=== PATIENT | male | born 1955 | race African-American/Black ===

== ENCOUNTER 2020-09-07 11:18 | Inpatient (IN) | payer OTHER ==
--- NOTE | 2020-09-07 12:44 | BHS.RME ---
2019 N Coronavirus Screen - COVID-19 Screening Questions Dx of COVID-19 or had a positive test in the last 4 weeks?: No Contact with known/suspected COVID patient in last 14 days?: No Any of these symptoms or contact with someone who has?: None Traveled domestically/internationally in the last 14 days?: No Screen score: 0 Screen result: Further Evaluation Substance Use & Tx History - Substance Use History Alcohol Substance amount: 1.5 pints vodka Frequency of use: Daily Substance route: Oral Date of Last Use: 09/06/20 (started age 20) Cocaine- Powder Substance amount: 1 gram Frequency of use: Daily Substance route: Inhalation (ex: sniffing or snorting) Date of Last Use: 09/06/20 (started age 24) Physical/Psych/Mental Status - Behavior General Behavior: Increased activity (restlessness, agitation) Eye Contact: Normal - Cooperativeness Cooperativeness: Cooperative - Thinking Thought Processes: Tight, Logical, Goal Directed Thought content: Future oriented - Physical Health Problems Is patient presently having any pain?: No Does patient presently have any injuries (include location): No Does patient currently have a fever: No Is patient : No CIWA Nausea/Vomitin Muscle Tremors: 3 Anxiety: 3 Agitation: 3 Paroxysmal Sweats: 2 Orientation: 0-Oriented Tacttile Disturbances: 1-Very Mild Itch/Numbness Auditory Disturbances: 0-None Visual Disturbances: 0-None Headache: 0-None Present CIWA-Ar Total Score: 14
[2020-09-07 12:57] VITALS: BMI 26.4
--- OUTSIDE RECORDS SUMMARY | 2020-09-07 13:20 | XMS ---
:1955 Author Organization [facility] Support Name Relationship Address Phone RE Unavailable Unavailable Unavailable MARVIN [place]A [place], [place] Re-disclosure Warning The records that you are about to access may contain information from federally- assisted alcohol or drug abuse programs. If such information is present, then the following federally mandated warning applies: This information has been disclosed to you from records protected by federal confidentiality rules (42 CFR part 2). The federal rules prohibit you from making any further disclosure of this information unless further disclosure is expressly permitted by the written consent of the person to whom it pertains or as otherwise permitted by 42 CFR part 2. A general authorization for the release of medical or other information is NOT sufficient for this purpose. The Federal rules restrict any use of the information to criminally investigate or prosecute any alcohol or drug abuse patient.The records that you are about to access may contain highly sensitive health information, the redisclosure of which is protected by Article 27-F of the [facility] Public Health law. If you continue you may haveaccess to information: Regarding HIV / AIDS; Provided by facilities licensed or operated by the [facility] Office of Mental Health; or Provided by the [facility] Office for People With Developmental Disabilities. If such information is present, then the following [facility] mandated warning applies: This information has been disclosed to you from confidential records which are protected by state law. State law prohibits you from making any further disclosure of this information without the specific written consent of the person to whom it pertains, or as otherwise permitted by law. Any unauthorized further disclosure in violation of state law may result in a fine or care home sentence or both. A general authorization for the release of medical or other information is NOT sufficient authorization for further disclosure. Insurance Providers Payer name Policy type Policy ID Covered Covered libertarian's Policy P la / Coverage libertarian ID relationship to Spar[employer] Inf ormation type sparrow BEACON [id number] SP [id number] [facility]
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
[2020-09-07] MEDS ORDERED: MENTHOL/PHENOL 1 EACH UD MM PRN (13:40)
[2020-09-07] MEDS ORDERED: IBUPROFEN 400 MG TABLET (FP) PO PRN (13:40)
[2020-09-07] MEDS ORDERED: ONDANSETRON *ODT* 4 MG TABLET SL PRN (13:40)
[2020-09-07] MEDS ORDERED: ACETAMINOPHEN 325 MG TABLET (FP) PO PRN ×2 (13:40)
[2020-09-07] MEDS ORDERED: chlordiazePOXIDE HCL 25 MG CAPSULE PO PRN (13:40)
[2020-09-07] MEDS ORDERED: METHOCARBAMOL 500 MG TABLET PO PRN (13:40)
[2020-09-07] MEDS ORDERED: MAG HYDROX/AL HYDROX/SIMETH 30 ML UNIT-DOSE CUP PO PRN (13:40)
[2020-09-07] MEDS ORDERED: NICOTINE POLACRILEX 2 MG GUM BUC PRN (13:40)
[2020-09-07] MEDS ORDERED: MAGNESIUM HYDROX 2400MG/30ML ORAL SUSPENSION 30 ML CUP PO PRN (13:40)
[2020-09-07] MEDS ORDERED: MAGNESIUM CITRATE 300 ML BOTTLE PO PRN (13:40)
[2020-09-07] MEDS ORDERED: BISMUTH SUBSALICYLATE 524 MG/30 ML UD PO PRN (13:40)
[2020-09-07] MEDS: hydrOXYzine PAMOATE 25 MG CAPSULE (FP) PO SCH ×3 (14:39→22:45)
--- NOTE | 2020-09-07 14:53 | EKG ---
Test Reason : Blood Pressure : / mmHG Vent. Rate : 088 BPM Atrial Rate : 088 BPM P-R Int : 150 ms QRS Dur : 102 ms QT Int : 360 ms P-R-T Axes : 058 030 047 degrees QTc Int : 435 ms NORMAL SINUS RHYTHM POSSIBLE LEFT ATRIAL ENLARGEMENT LEFT VENTRICULAR HYPERTROPHY ABNORMAL ECG NO PREVIOUS ECGS AVAILABLE Confirmed by KEENAN VOGEL, AMISHA ([id number]) on 09/07/2020 2:52:55 PM Referred By: Confirmed By:AMISHA HUSSEIN MD
[2020-09-07 14:56] LABS: HEMATOCRIT 35.8 % (35.4-49); HEMOGLOBIN 11.6 GM/dL (11.7-16.9); MCH 29.7 pg (25.7-33.7); MCHC 32.4 g/dl (32.0-35.9); MEAN CELL VOLUME 91.5 fl (80-96); MEAN PLT VOLUME 7.9 fl (7.5-11.1); PLATELET COUNT 385 K/MM3 (134-434); RBC 3.91 M/mm3 (4.00-5.60); RDW 13.6 % (11.9-15.9); WHITE BLOOD COUNT 6.2 K/mm3 (4.0-10.0)
[2020-09-07 15:12] LABS: ALBUMIN 3.5 g/dl (3.4-5.0); BILIRUBIN,TOTAL 0.8 mg/dL (0.2-1); BLOOD UREA NITROGEN 15.8 mg/dL (7-18); CALCIUM 9.2 mg/dL (8.5-10.1); POTASSIUM 3.7 mmol/L (3.5-5.1); TOT PROT 7.1 g/dl (6.4-8.2)
[2020-09-07] MEDS: chlordiazePOXIDE HCL 25 MG CAPSULE PO SCH ×2 (18:37→22:45)
[2020-09-07] MEDS: THIAMINE HCL 100 MG TABLET (FP) PO SCH (22:45)
[2020-09-07] MEDS: ATORVASTATIN CA 10 MG TABLET (FP) PO SCH (22:45)
[2020-09-07] MEDS: MELATONIN 5 MG TABLETS PO SCH (22:48)
[2020-09-08] MEDS: hydrOXYzine PAMOATE 25 MG CAPSULE (FP) PO SCH ×5 (05:34→22:19)
[2020-09-08] MEDS: chlordiazePOXIDE HCL 25 MG CAPSULE PO SCH ×4 (05:34→22:19)
--- NOTE | 2020-09-08 10:07 | PN ---
[facility] CIWA - CIWA Score Nausea/Vomitin-Mild Nausea/No Vomiting Muscle Tremors: 3 Anxiety: 3 Agitation: 2 Paroxysmal Sweats: No Perspiration Orientation: 0-Oriented Tacttile Disturbances: 1-Very Mild Itch/Numbness Auditory Disturbances: 0-None Visual Disturbances: 0-None Headache: 2-Mild CIWA-Ar Total Score: 12 S Progress Note (SOAP) Subjective: alert,irritable,anxious,interrupted sleep,tremor,aching pain Objective: 09/08/20 10:05 Vital Signs Temperature 96.8 F L 09/08/20 09:32 Pulse Rate 69 09/08/20 09:32 Respiratory Rate 16 09/08/20 09:32 Blood Pressure 112/59 L 09/08/20 09:32 O2 Sat by Pulse Oximetry (%) 97 09/08/20 09:32 Laboratory Last Values WBC 6.2 K/mm3 (4.0-10.0) 09/07/20 13:30 RBC 3.91 M/mm3 (4.00-5.60) L 09/07/20 13:30 Hgb 11.6 GM/dL (11.7-16.9) L 09/07/20 13:30 Hct 35.8 % (35.4-49) 09/07/20 13:30 MCV 91.5 fl (80-96) 09/07/20 13:30 MCH 29.7 pg (25.7-33.7) 09/07/20 13:30 MCHC 32.4 g/dl (32.0-35.9) 09/07/20 13:30 RDW 13.6 % (11.9-15.9) 09/07/20 13:30 Plt Count 385 K/MM3 (134-434) 09/07/20 13:30 MPV 7.9 fl (7.5-11.1) 09/07/20 13:30 Sodium 141 mmol/L (136-145) 09/07/20 13:30 Potassium 3.7 mmol/L (3.5-5.1) 09/07/20 13:30 Chloride 106 mmol/L (98-107) 09/07/20 13:30 Carbon Dioxide 30 mmol/L (21-32) 09/07/20 13:30 Anion Gap 6 MMOL/L (8-16) L 09/07/20 13:30 BUN 15.8 mg/dL (7-18) 09/07/20 13:30 Creatinine 1.0 mg/dL (0.55-1.3) 09/07/20 13:30 Est GFR (CKD-EPI)AfAm 92.42 09/07/20 13:30 Est GFR (CKD-EPI)NonAf 79.75 09/07/20 13:30 Random Glucose 158 mg/dL (74-106) H 09/07/20 13:30 Calcium 9.2 mg/dL (8.5-10.1) 09/07/20 13:30 Total Bilirubin 0.8 mg/dL (0.2-1) 09/07/20 13:30 AST 15 U/L (15-37) 09/07/20 13:30 ALT 18 U/L (13-61) 09/07/20 13:30 Alkaline Phosphatase 43 U/L (45-117) L 09/07/20 13:30 Total Protein 7.1 g/dl (6.4-8.2) 09/07/20 13:30 Albumin 3.5 g/dl (3.4-5.0) 09/07/20 13:30 Syphilis Serology Non-reactive (NONREACTIVE) 09/07/20 13:30 HIV Ag/Ab Combo Qual Negative (NEGATIVE) 09/07/20 13:30 Assessment: 09/08/20 10:06 withdrawal symptom Plan: continue detox librium regimen,fasting glucose in am
[2020-09-08] MEDS: NICOTINE 7 MG/24 HOURS TOPICAL PATCH TD SCH (10:37)
[2020-09-08] MEDS: HYDROCHLOROTHIAZIDE 12.5 MG CAPSULE (FP) PO SCH (10:37)
[2020-09-08] MEDS: KETOCONAZOLE 2% TOPICAL CREAM 15 GM TUBE TP SCH (10:37)
[2020-09-08] MEDS: PRENATAL VITAMINS W/ FOLIC ACID TABLET (FP) PO SCH (10:38)
[2020-09-08] MEDS: THIAMINE HCL 100 MG TABLET (FP) PO SCH (22:19)
[2020-09-08] MEDS: MELATONIN 5 MG TABLETS PO SCH (22:19)
[2020-09-08] MEDS: ATORVASTATIN CA 10 MG TABLET (FP) PO SCH (22:19)
[2020-09-09] MEDS: hydrOXYzine PAMOATE 25 MG CAPSULE (FP) PO SCH ×5 (05:38→22:45)
[2020-09-09] MEDS: chlordiazePOXIDE HCL 25 MG CAPSULE PO SCH ×4 (05:38→22:46)
[2020-09-09] MEDS: PRENATAL VITAMINS W/ FOLIC ACID TABLET (FP) PO SCH (10:29)
[2020-09-09] MEDS: NICOTINE 7 MG/24 HOURS TOPICAL PATCH TD SCH (10:31)
[2020-09-09] MEDS: HYDROCHLOROTHIAZIDE 12.5 MG CAPSULE (FP) PO SCH (15:29)
[2020-09-09] MEDS: KETOCONAZOLE 2% TOPICAL CREAM 15 GM TUBE TP SCH (15:29)
--- NOTE | 2020-09-09 18:23 | PN ---
S CIWA - CIWA Score Nausea/Vomitin Muscle Tremors: 2 Anxiety: 3 Agitation: 2 Paroxysmal Sweats: No Perspiration Orientation: 0-Oriented Tacttile Disturbances: 0-None Auditory Disturbances: 0-None Visual Disturbances: 0-None Headache: 0-None Present CIWA-Ar Total Score: 12 BHS Progress Note (SOAP) Subjective: Anxious, Tremors, Vomiting. Objective: Patient A & O X 3, Observed Ambulating on Detox Unit with Assistance of a Cane. In No Acute Distress. 09/09/20 18:19 Vital Signs Temperature 97.7 F 09/09/20 16:30 Pulse Rate 80 09/09/20 16:30 Respiratory Rate 19 09/09/20 16:30 Blood Pressure 124/73 09/09/20 16:30 O2 Sat by Pulse Oximetry (%) 98 09/09/20 16:30 Laboratory Tests 09/07/20 09/07/20 09/07/20 13:30 13:30 13:30 WBC 6.2 RBC 3.91 L Hgb 11.6 L Hct 35.8 MCV 91.5 MCH 29.7 MCHC 32.4 RDW 13.6 Plt Count 385 MPV 7.9 Sodium 141 Potassium 3.7 Chloride 106 Carbon Dioxide 30 Anion Gap 6 L BUN 15.8 Creatinine 1.0 Est GFR (CKD-EPI)AfAm 92.42 Est GFR (CKD-EPI)NonAf 79.75 Random Glucose 158 H Fasting Glucose Calcium 9.2 Total Bilirubin 0.8 AST 15 ALT 18 Alkaline Phosphatase 43 L Total Protein 7.1 Albumin 3.5 Syphilis Serology COVID-19 (AISLINN) HIV Ag/Ab Combo Qual Negative 09/07/20 09/07/20 09/09/20 13:30 13:30 07:05 WBC RBC Hgb Hct MCV MCH MCHC RDW Plt Count MPV Sodium Potassium Chloride Carbon Dioxide Anion Gap BUN Creatinine Est GFR (CKD-EPI)AfAm Est GFR (CKD-EPI)NonAf Random Glucose Fasting Glucose 102 Calcium Total Bilirubin AST ALT Alkaline Phosphatase Total Protein Albumin Syphilis Serology Non-reactive COVID-19 (AISLINN) Not detected HIV Ag/Ab Combo Qual Lab results noted. Result of Fasting Glucose level noted (102) within normal range. 09/09/20 18:20 Assessment: 09/09/20 18:19 WITHDRAWAL SYMPTOMS. ANEMIA. 09/09/20 18:21 Plan: Continue Detox. Increase Daily oral water intake. PRN Zofran SL recommended for relief of Nausea / Vomiting. Patient is currently receiving daily MVI containing B Vitamins and Iron while admitted for Detox.
[2020-09-09] MEDS: ATORVASTATIN CA 10 MG TABLET (FP) PO SCH (22:45)
[2020-09-09] MEDS: THIAMINE HCL 100 MG TABLET (FP) PO SCH (22:45)
[2020-09-09] MEDS: MELATONIN 5 MG TABLETS PO SCH (22:46)
[2020-09-10] MEDS ORDERED: chlordiazePOXIDE HCL 10 MG CAPSULE PO PRN
[2020-09-10] MEDS: hydrOXYzine PAMOATE 25 MG CAPSULE (FP) PO SCH ×5 (05:28→22:31)
[2020-09-10] MEDS: chlordiazePOXIDE HCL 10 MG CAPSULE PO SCH ×4 (05:28→22:32)
[2020-09-10] MEDS: HYDROCHLOROTHIAZIDE 12.5 MG CAPSULE (FP) PO SCH (10:13)
[2020-09-10] MEDS: PRENATAL VITAMINS W/ FOLIC ACID TABLET (FP) PO SCH (10:14)
[2020-09-10] MEDS: NICOTINE 7 MG/24 HOURS TOPICAL PATCH TD SCH (10:16)
[2020-09-10] MEDS: KETOCONAZOLE 2% TOPICAL CREAM 15 GM TUBE TP SCH (11:03)
--- NOTE | 2020-09-10 12:02 | PN ---
[facility] CIWA - CIWA Score Nausea/Vomitin-No Nausea/No Vomiting Muscle Tremors: 2 Anxiety: 2 Agitation: 2 Paroxysmal Sweats: 2 Orientation: 0-Oriented Tacttile Disturbances: 0-None Auditory Disturbances: 0-None Visual Disturbances: 0-None Headache: 0-None Present CIWA-Ar Total Score: 8 S Progress Note (SOAP) Subjective: Complaints of anxiety, tremors, and sweats. Objective: 09/10/20 12:01 Vital Signs 09/10/20 09/10/20 06:18 09:15 Temperature 98.0 F 97.9 F Pulse Rate 63 74 Respiratory 20 19 Rate Blood Pressure 126/65 111/66 O2 Sat by Pulse 100 100 Oximetry (%) Laboratory Last Values WBC 6.2 K/mm3 (4.0-10.0) 09/07/20 13:30 RBC 3.91 M/mm3 (4.00-5.60) L 09/07/20 13:30 Hgb 11.6 GM/dL (11.7-16.9) L 09/07/20 13:30 Hct 35.8 % (35.4-49) 09/07/20 13:30 MCV 91.5 fl (80-96) 09/07/20 13:30 MCH 29.7 pg (25.7-33.7) 09/07/20 13:30 MCHC 32.4 g/dl (32.0-35.9) 09/07/20 13:30 RDW 13.6 % (11.9-15.9) 09/07/20 13:30 Plt Count 385 K/MM3 (134-434) 09/07/20 13:30 MPV 7.9 fl (7.5-11.1) 09/07/20 13:30 Sodium 141 mmol/L (136-145) 09/07/20 13:30 Potassium 3.7 mmol/L (3.5-5.1) 09/07/20 13:30 Chloride 106 mmol/L (98-107) 09/07/20 13:30 Carbon Dioxide 30 mmol/L (21-32) 09/07/20 13:30 Anion Gap 6 MMOL/L (8-16) L 09/07/20 13:30 BUN 15.8 mg/dL (7-18) 09/07/20 13:30 Creatinine 1.0 mg/dL (0.55-1.3) 09/07/20 13:30 Est GFR (CKD-EPI)AfAm 92.42 09/07/20 13:30 Est GFR (CKD-EPI)NonAf 79.75 09/07/20 13:30 Random Glucose 158 mg/dL (74-106) H 09/07/20 13:30 Fasting Glucose 102 mg/dL (74-106) 09/09/20 07:05 Calcium 9.2 mg/dL (8.5-10.1) 09/07/20 13:30 Total Bilirubin 0.8 mg/dL (0.2-1) 09/07/20 13:30 AST 15 U/L (15-37) 09/07/20 13:30 ALT 18 U/L (13-61) 09/07/20 13:30 Alkaline Phosphatase 43 U/L (45-117) L 09/07/20 13:30 Total Protein 7.1 g/dl (6.4-8.2) 09/07/20 13:30 Albumin 3.5 g/dl (3.4-5.0) 09/07/20 13:30 Syphilis Serology Non-reactive (NONREACTIVE) 09/07/20 13:30 COVID-19 (AISLINN) Not detected (Not Detected) 09/07/20 13:30 HIV Ag/Ab Combo Qual Negative (NEGATIVE) 09/07/20 13:30 labs noted. Assessment: 09/10/20 12:01 Alert and oriented x3, in no acute respiratory distress. Full ROM, ambulating in unit with cane. Skin warm to touch without lesions. Withdrawal symptoms. 09/10/20 12:02 Plan: Continue detox protocol.
[2020-09-10] MEDS: ATORVASTATIN CA 10 MG TABLET (FP) PO SCH (22:31)
[2020-09-10] MEDS: THIAMINE HCL 100 MG TABLET (FP) PO SCH (22:31)
[2020-09-10] MEDS: MELATONIN 5 MG TABLETS PO SCH (22:32)
[2020-09-11] MEDS: chlordiazePOXIDE HCL 10 MG CAPSULE PO SCH ×2 (05:41→17:48)
[2020-09-11] MEDS: hydrOXYzine PAMOATE 25 MG CAPSULE (FP) PO SCH ×5 (05:41→22:12)
--- NOTE | 2020-09-11 10:21 | PN ---
[facility] CIWA - CIWA Score Nausea/Vomitin-No Nausea/No Vomiting Muscle Tremors: 1-None Visible, but [place] Anxiety: 1-Mildly Anxious Agitation: 0-Normal Activity Paroxysmal Sweats: No Perspiration Orientation: 0-Oriented Tacttile Disturbances: 0-None Auditory Disturbances: 0-None Visual Disturbances: 0-None Headache: 0-None Present CIWA-Ar Total Score: 2 BHS Progress Note (SOAP) Subjective: anxiety Objective: 09/11/20 11:11 Vital Signs Temperature 96.9 F L 09/11/20 08:47 Pulse Rate 81 09/11/20 08:47 Respiratory Rate 18 09/11/20 08:47 Blood Pressure 119/68 09/11/20 08:47 O2 Sat by Pulse Oximetry (%) 99 09/11/20 08:47 aaox3 sitting on edge of bed reading a book no acute distress Assessment: 09/11/20 11:11 mild withdrawals Plan: d/c in am
[2020-09-11] MEDS: PRENATAL VITAMINS W/ FOLIC ACID TABLET (FP) PO SCH (10:26)
[2020-09-11] MEDS: NICOTINE 7 MG/24 HOURS TOPICAL PATCH TD SCH (10:26)
[2020-09-11] MEDS: HYDROCHLOROTHIAZIDE 12.5 MG CAPSULE (FP) PO SCH (10:26)
[2020-09-11] MEDS: KETOCONAZOLE 2% TOPICAL CREAM 15 GM TUBE TP SCH (12:32)
[2020-09-11] MEDS: ATORVASTATIN CA 10 MG TABLET (FP) PO SCH (22:10)
[2020-09-11] MEDS: THIAMINE HCL 100 MG TABLET (FP) PO SCH (22:10)
[2020-09-11] MEDS: MELATONIN 5 MG TABLETS PO SCH (22:11)
[2020-09-12] MEDS ORDERED: chlordiazePOXIDE HCL 10 MG CAPSULE PO ONE (05:00)
[2020-09-12] MEDS: hydrOXYzine PAMOATE 25 MG CAPSULE (FP) PO SCH ×2 (05:45→10:16)
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
[2020-09-12 09:48] VITALS: BP 124/68; PULSE 79; TEMP 97.5
[2020-09-12] MEDS: KETOCONAZOLE 2% TOPICAL CREAM 15 GM TUBE TP SCH (10:15)
[2020-09-12] MEDS: PRENATAL VITAMINS W/ FOLIC ACID TABLET (FP) PO SCH (10:15)
[2020-09-12] MEDS: HYDROCHLOROTHIAZIDE 12.5 MG CAPSULE (FP) PO SCH (10:15)
[2020-09-12] MEDS: NICOTINE 7 MG/24 HOURS TOPICAL PATCH TD SCH (10:15)
== END 2020-09-12 13:04 | disposition other institution (70) | DRG 774 ==
LOC: YASAS 11:18 → Y6N 13:15
PROVIDERS: ADMIT Allergy & Immunology; ATTEND Allergy & Immunology
PROC: HZ2ZZZZ Detoxification Services for Substance Abuse Treatment (ICD-10-PCS; principal; 2020-09-07)
DX: F10.230 Alcohol dependence with withdrawal, uncomplicated (principal); F14.20 Cocaine dependence, uncomplicated; F17.210 Nicotine dependence, cigarettes, uncomplicated; F32.9 Major depressive disorder, single episode, unspecified; D64.9 Anemia, unspecified; E78.5 Hyperlipidemia, unspecified; I10 Essential (primary) hypertension; M54.89 Other dorsalgia; G89.29 Other chronic pain; R26.89 Other abnormalities of gait and mobility; Z91.81 History of falling; Z87.828 Personal history of other (healed) physical injury and trauma
CPT/HCPCS: 36415; 80053; 82947; 85027; 86780; 87389; 93005; 93010; C9803; U0003